=== PATIENT | female | born 1990 | race Caucasian/White ===

== ENCOUNTER 2017-03-31 20:55 | Emergency (ER) | payer OTHER ==
[2017-04-01] VITALS: BP 109/69
== END 2017-04-01 | disposition home or self-care (01) ==
LOC: ED 20:55
DX: S50.01XA Contusion of right elbow, initial encounter (principal); M25.561 Pain in right knee; W07.XXXA Fall from chair, initial encounter; Y93.89 Activity, other specified; Y92.89 Other specified places as the place of occurrence of the external cause; Y99.8 Other external cause status